=== PATIENT | male | born 1995 | race Caucasian/White ===

== ENCOUNTER 2017-02-06 21:15 | Emergency (ER) | payer BC ==
[2017-02-06 21:25] VITALS: RESP 16; O2SAT 97
--- NOTE | 2017-02-06 21:31 | EDPHY ---
H & P Stated Complaint: felt all over body numbness and tingling and dyspnea earlier HPI/ROS: HPI CHIEF COMPLAINT: Anxiety HISTORY OF PRESENT ILLNESS: This patient very pleasant 21-year-old male, otherwise healthy no significant medical history he presents emergency room with acute anxiety and panic attack. Patient states that his van broke down in [facility]. He went to get it today. [place] felt numbness and tingling in his legs arms and hands and around his mouth. Began hyperventilating. 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 He did not pass out. Denies any chest pain. He does endorse palpitations. He has had panic attacks previously. Does not take any medication. States he is going through a stressful time in his life. This is causing him anxiety. Past Medical History: No significant medical history Past Surgical History: No significant surgical history Social History: Denies daily use drugs alcohol tobacco. Family History: Noncontributory ROS REVIEW OF SYSTEMS: A comprehensive 10 point review of systems is otherwise negative aside from elements mentioned in the history of present illness. Exam Constitutional appears well nontoxic, triage nursing summary reviewed, vital signs reviewed, awake/alert. Eyes normal conjunctivae and sclera, EOMI, PERRLA. HENT normal inspection, atraumatic, moist mucus membranes, no epistaxis, neck supple/ no meningismus, no raccoon eyes. Respiratory clear to auscultation bilaterally, normal breath sounds, no respiratory distress, no wheezing. Cardiovascular rate normal, regular rhythm, no murmur, no edema, distal pulses normal. Gastrointestinal soft, non-tender, no rebound, no guarding, normal bowel sounds, no distension, no pulsatile mass. Genitourinary no CVA tenderness. Musculoskeletal no midline vertebral tenderness, full range of motion, no calf swelling, no tenderness of extremities, no meningismus, good pulses, neurovascularly intact. Skin pink, warm, & dry, no rash, skin atraumatic. Neurologic awake, alert and oriented x 3, AAOx3, moves all 4 extremities equally, motor intact, sensory intact, CN II-XII intact, normal cerebellar, normal vision, normal speech. Psychiatric normal mood/affect. Heme/Lymph/Immune no lymphadenopathy. Differential Diagnosis: Includes but is not limited to in a particular order acute anxiety attack, panic attack. Cardiac arrhythmia. Medical Decision Making: Plan for this patient EKG. He states his symptoms have resolved he is resting comfortably no acute distress. Decided come the emergency room to make sure he was not having a cardiac event. He has no chest pain shortness of breath. Plan for this patient EKG and then if this is normal he can be discharged. Re-evaluation: EKG interpretation by me on record in [employer] system. Impression time of EKG 2202, this is sinus rhythm rate of 73 there is some sinus arrhythmia present. Nothing significant. There is no acute ischemic changes appreciated. Q-waves noted in inferior leads with a normal variant for his age. Otherwise unremarkable EKG. No signs of WPW or Brugada. Source: Patient - Personal History Current Tetanus/Diphtheria Vaccine: Yes - Medical/Surgical History Hx Asthma: Yes Hx Chronic Respiratory Disease: No Hx Diabetes: No Hx Cardiac Disease: No Hx Renal Disease: No Hx Cirrhosis: No Hx Alcoholism: No Hx HIV/AIDS: No Hx Splenectomy or Spleen Trauma: No Other PMH: PMHx:environmental allergies, sports induced asthma like sx. PSHx: wisdom tooth extraction - Social History Smoking Status: Never smoked Constitutional: Initial Vital Signs Temperature (C) 36.9 C 02/06/17 21:22 Heart Rate 62 02/06/17 21:22 Respiratory Rate 16 02/06/17 21:22 Blood Pressure 139/70 H 02/06/17 21:22 O2 Sat (%) 97 02/06/17 21:22 O2 Delivery Mode Room Air Allergies/Adverse Reactions: No Known Allergies Allergy (Unverified 09/16/13 16:01) Home Medications: Medication Instructions Recorded NK [No Known Home Meds] 02/06/17 Departure - Departure Disposition: Home, Routine, Self-Care Clinical Impression: Panic attack Condition: Good Instructions: Anxiety (ED), Panic Attack (ED) Additional Instructions: 1. Return emergency room immediately if he develops worsening symptoms questions or concerns. Referrals: NONE *PRIMARY CARE P,. [Primary Care Provider] - As per Instructions
--- NOTE | 2017-02-06 22:05 | CPEKG ---
Heart Rate: 73 RR Interval: 822 P-R Interval: 152 QRSD Interval: 100 QT Interval: 368 QTC Interval: 406 P Lomb[place]: 28 QRS [place]: 69 T Wave [place]: 41 EKG Severity - ABNORMAL ECG - EKG Impression: SINUS ARRHYTHMIA, RATE 51-86 EKG Impression: PROBABLE LEFT VENTRICULAR HYPERTROPHY EKG Impression: INFERIOR Q WAVES, PROBABLY NORMAL VARIATION Electronically Signed By: Narayan Wyatt 07-Feb-2017 11:50:23
[2017-02-06 22:18] VITALS: BP 128/68; PULSE 69; TEMP 97.9
== END 2017-02-06 22:17 | disposition home or self-care (01) ==
DX: F41.0 Panic disorder [episodic paroxysmal anxiety] (principal); J45.909 Unspecified asthma, uncomplicated